=== PATIENT | female | born 1975 | race Caucasian/White ===

== ENCOUNTER 2025-01-21 01:39 | Emergency (ER) | payer OTHER, MEDICAID ==
[~2025-01-21] VITALS: Ht 167.6 cm; Wt 66.0 kg
[2025-01-21 01:43] VITALS: O2SAT 100
[2025-01-21] MEDS: KETOROLAC 15MG/ML VIAL IM ONE (02:15)
[2025-01-21] MEDS ORDERED: LIDO-53 TP (03:40)
[2025-01-21] MEDS ORDERED: NAPR-1176 MT (03:40)
[2025-01-21 03:55] VITALS: BP 167/79; PULSE 74; RESP 18; TEMP 36.6; O2SAT 100
== END 2025-01-21 04:13 | disposition home or self-care (01) ==
LOC: ER 01:39
DX: M79.18 Myalgia, other site (principal); V89.2XXA Person injured in unspecified motor-vehicle accident, traffic, initial encounter; Y93.89 Activity, other specified; Y92.410 Unspecified street and highway as the place of occurrence of the external cause; Y99.8 Other external cause status
CPT/HCPCS: 99284; 96372; J1885